=== PATIENT | male | born 1960 ===

== ENCOUNTER 2024-07-22 06:20 | Day surgery (SDC) | payer OTHER ==
[2024-07-17 13:36] LABS: Absolute Basophils 0.1 K/uL (0-0.5); Absolute Eosinophils 0.1 K/uL (0-0.5); Absolute Lymphocytes (CBC) 2.1 K/uL (0.7-4.9); Absolute Monocytes 0.9 K/uL (0.1-1.3); Absolute Neutrophil 3.9 K/uL (1.8-8.0); Eosinophils % 1.8 % (0-4.4); Hematocrit 47.2 % (39.6-49.0); Hemoglobin 15.7 g/dL (13.6-17.9); Lymphocytes % 29.8 % (15.3-44.8); MCH 29.8 pg (27.0-35.0); MCHC 33.3 g/dL (32.0-36.0); MCV 89.5 fL (80-100); MPV 9.1 fL (7.6-11.3); Monocytes % 12.5 % (3.3-12.3); Neutrophils % 54.9 % (41.7-73.7); Nucleated Red Blood Cells % 0.1 % (0-0); Platelets 311 thou/uL (152-406); RBC Red Blood Cell Count 5.28 M/uL (4.33-5.43); Red Cell Distribution Width 13.4 % (12.1-15.2)
--- NOTE | 2024-07-17 14:07 | RAD REPORT ---
EXAM: Chest Pa And Lat (2 Views) HISTORY: 64 years Male PRE OP COMPARISON: None. FINDINGS: LUNGS/PLEURA: The lungs are clear. No pleural effusions or pneumothorax. No pulmonary edema. MEDIASTINUM: The mediastinal silhouette is within normal limits CARDIAC: The cardiac silhouette is within normal limits. UPPER ABDOMEN: No significant abnormality. BONES: No acute abnormality. LINES/TUBES/OTHER: N/A IMPRESSION: No evidence of acute cardiopulmonary disease.
--- NOTE | 2024-07-20 12:09 | EKG ---
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
[2024-07-22] MEDS: Ringers Lactate 1,000 ML IV ONE (06:55)
[2024-07-22] MEDS ORDERED: propofoL 200 MG/20 ML VIAL IV ONE (07:13)
[2024-07-22] MEDS ORDERED: ROCURONIUM 50 MG/5 ML VIAL IV ONE (07:13)
[2024-07-22] MEDS ORDERED: MIDAZOLAM HCL 2 MG/2 ML INJ ONE (07:13)
[2024-07-22] MEDS ORDERED: FENTANYL CITR 100 MCG/2 ML ONE (07:13)
[2024-07-22] MEDS ORDERED: ONDANSETRON 4 MG/2 ML VIAL ONE (07:13)
[2024-07-22] MEDS ORDERED: LIDOCAINE 2% MPF 5 ML VIAL ONE (07:14)
[2024-07-22] MEDS ORDERED: SUGAMMADEX SODIUM 200 MG/2 ML VIAL IV ONE (07:22)
[2024-07-22] MEDS: CIPROFLOXACIN 400mg IV 400 MG/200 ML BAG IV ONE (07:49)
[2024-07-22] MEDS ORDERED: EPHEDRINE SULF 50 MG/ML VIAL ONE (07:51)
[2024-07-22] MEDS ORDERED: dexAMETHasone 10 MG/ML VIAL ONE (08:02)
[2024-07-22] MEDS ORDERED: NEOSTIGMINE 1 MG/ML -10 ML VIAL ONE (08:34)
[2024-07-22] MEDS ORDERED: GLYCOPYRROLATE 0.2 MG/ML SYR ONE (08:34)
--- NOTE | 2024-07-22 08:46 | P.BOP ---
Preoperative diagnosis: incarcerated tender ventral hernia Postoperative diagnosis: same Primary procedure: Laparoscopic repair of incarcerated tender ventral hernia with mesh Estimated blood loss: <10cc Specimen: sac and content Findings: see dicta Anesthesia: General Complications: None Implants: Ventralight ST with ECHO [id number] Transferred to: Recovery Room Condition: Good
[2024-07-22] MEDS: HYDROMORPHONE HCL 1 MG/ML INJ ONE (09:25)
[2024-07-22 09:42] VITALS: O2SAT 99
[2024-07-22 10:48] VITALS: BP 108/74; TEMP 97.2
--- NOTE | 2024-07-29 21:05 | DS ---
Date of Discharge: 07/22/2024 Diagnosis: Incarcerated tender ventral hernia. Procedure: Laparoscopic repair of incarcerated tender ventral hernia with mesh. Condition: Stable. Disposition: Home. Activity: As tolerated. No heavy lifting. Discharge Instructions: Follow up in my office in 1 week, call for appointment [phone]. Keep area dry for 48 hours, then may shower. Keep Steri-Strip intact. Abdominal binder while he is out of bed . PHILLIP/NAYLA Voice ID: [id number] Report ID: [id number]
--- NOTE | 2024-07-29 21:25 | OP ---
Date of Procedure: 07/22/2024 Surgeon: Familia Mills MD Preoperative Diagnosis: Incarcerated tender ventral hernia. Postoperative Diagnosis: Incarcerated tender ventral hernia. Procedure: Laparoscopic repair of incarcerated tender ventral hernia with mesh. Estimated Blood Loss: Less than 10 cc. Specimens: Sac and content. Findings: Incarcerated ventral hernia. Anesthesia: General plus local. Complications: None. Implant: Ventralight ST with Echo Positioning System, 15 x 10 cm. Indications: This is a case of a male who comes to us with a tender hernia, cannot be reduced anymor e, becoming larger on the ventral region. The benefits, alternatives, and risks of laparoscopic vers us open repair of incarcerated ventral hernia with mesh were fully explained, which include, but not limited to, infection, bleeding, damage to adjacent structures, anesthesia complication, recurrence, [place], even . He also understands this may not relieve any symptoms. He might need more than one surgical intervention. He understood and signed a consent. The patient was fully explained we may b e using mesh in that region, so the pros and cons of mesh placement were discussed with the patient a nd all the questions answered to his satisfaction. He signed a consent. Procedure In Detail: The patient was brought to the operating room, placed in supine position. Anes thesia was done without complication. Abdominal area was prepped and draped in a sterile fashion. L ocal anesthetic was applied, followed by sharp incision on the skin. Incision was carried down to fa scia and when we went to the area of the fascia that is in the periumbilical region, we opened the pe ritoneum and placed Vicryl #1 inside the fascia. Nydia trocar was carefully introduced. Pneumoperi toneum was obtained. Now, we understood there was incarcerated omentum coming through wit h adhesions mixed with, so we have to break into those adhesions to be able to reduce that content, a nd the way we did that was basically with the help of 2 more trocars and a LigaSure. We also noticed that falciform ligament was on its way. Here, we put a mesh in that region that will need it becaus e the fascial edges looked friable. We will not be laying flat unless we mobilized the falciform lig aments and so we did. Once we had that, we had the fascia edges clean and we proceeded th en to make an incision in that area to do a primary repair of that hernia defect, but once again it w as not strong enough to hold pressure, but we wanted to make sure that we closed the fascia defect an d then covered the area with mesh underneath, so once we decided that the defects required 15 x 10 cm mesh to overlap 3 to 5 cm, then we proceeded to introduce the Ventralex ST mesh. Under l aparoscopic conditions, the balloon was then inflated, goes nice and flat against the defect. We sec ured that circumferentially. Then removed the balloon and continued fixating that with SorbaFix. Th e mesh looked nice and flat against the fascia. No bowel in between. Falciform ligament area and ly sis of adhesions showed no bleeding. At that moment, I proceeded then to deflate under direct vision , removed the trocars, and closed the fascia on the previous incision with #1 Vicryl. The hernia def ect was already tied with multiple [id number] Vicryl's. The area was irrigated and then subcuta neous tissue closed with 3-0 chromic and skin in a subcuticular fashion with 3-0 chromic, and Steri-S trips on top. Sponge count and instrument count were correct. The patient tolerated procedure well. The patient was sent to recovery in stable condition. PHILLIP/NAYLA Voice ID: [id number] Report ID: [id number]
== END 2024-07-22 10:46 | disposition home or self-care (01) ==
LOC: OR 06:20
PROVIDERS: ATTEND Surgery
PROC: 0WUF4JZ Supplement Abdominal Wall with Synthetic Substitute, Percutaneous Endoscopic Approach (ICD-10-PCS; principal; 2024-07-22 07:30)
DX: K43.6 Other and unspecified ventral hernia with obstruction, without gangrene (principal)
CPT/HCPCS: 93005; 85025; 80048; 36415; 88302; 71046; 49594; J2704; J2710; J2003; J2250; J3010; J1100; J1171; J2405; J0744; J7120